=== PATIENT | male | born 1965 | race Caucasian/White ===

== ENCOUNTER → 2017-06-11 | Outpatient (CLI) | payer OTHER ==
[~2017-06-11] MED LIST: Allergy Medicin25 MG PO; CEPH500 PO; CETI10 PO; LEVSOD112 PO; OXYACE5T PO; [UNRECOGNIZED DRUG - REMARK]; [UNRECOGNIZED DRUG - REMARK]
== END | disposition home or self-care (01) ==
LOC: LAB EV 08:21
DX: M79.605 Pain in left leg (principal)
CPT/HCPCS: 85379

== ENCOUNTER → 2023-09-09 | Outpatient (CLI) | payer SELFPAY | END | disposition home or self-care (01) | LOC: LAB 07:55 → LAB SHORT 07:55 | DX: R31.9 Hematuria, unspecified (principal) | CPT/HCPCS: 87086 ==